=== PATIENT | male | born 1965 | race American Indian/Alaskan Native ===

== ENCOUNTER 2017-11-28 10:09 | Emergency (ER) | payer OTHER ==
--- NOTE | 2017-11-28 10:47 | EDM.PDOC ---
ED HPI GENERAL MEDICAL PROBLEM - General Chief Complaint: Lower Extremity Injury/Pain Stated Complaint: LEFT KNEE, [id number] Time Seen by Provider: 11/28/17 10:40 Source of Information: Reports: Patient, RN, RN Notes Reviewed History Limitations: Reports: No Limitations - History of Present Illness INITIAL COMMENTS - FREE TEXT/NARRATIVE: Pt c/o left knee pain and swelling sustained yesterday when pt accidentally and unexpectedly stepping in a hole. Pt states that his knee buckled, but he did not fall. He felt a "crunching" sensation with the impact. He has been able to bear wt, but states that it is almost intolerable. Reports Hx of OA and prior Rt knee arthroscopy. Onset: Sudden Duration: Constant Location: Reports: Lower Extremity, Left Quality: Reports: Ache Severity: Severe Improves with: Reports: Immobilization Worsens with: Reports: Movement Associated Symptoms: Reports: No Other Symptoms Left Knee Pain Score (Numeric/FACES): 2 - Related Data Allergies Allergy/AdvReac Type Severity Reaction Status Date / Time No Known Allergies Allergy Verified 11/28/17 10:23 Home Meds: Home Meds Lisinopril [Prinivil] 40 mg PO DAILY 05/02/16 [History] amLODIPine Besylate [Amlodipine Besylate] 5 mg PO DAILY 05/02/16 [History] Aspirin 1 tab PO DAILY 11/28/17 [History] Gabapentin [Neurontin] 1 tab PO BID 11/28/17 [History] Past Medical History Cardiovascular History: Reports: Hypertension Musculoskeletal History: Reports: Osteoarthritis - Past Surgical History Other Musculoskeletal Surgeries/Procedures:: left wrist surgery Social & Family History - Family History Family Medical History: Noncontributory - Tobacco Use Smoking Status *Q: Current Every Day Smoker Tobacco Use Within Last Twelve Months: Cigarettes Years of Tobacco use: 38 Packs/Tins Daily: 0.5 Second Hand Smoke Exposure: Yes - Alcohol Use Days Per Week of Alcohol Use: 2 Number of Drinks Per Day: 6 Total Drinks Per Week: 12 - Recreational Drug Use Recreational Drug Use: No - Living Situation & Occupation Living situation: Reports: , with Family Occupation: Employed Review of Systems - Review of Systems Review Of Systems: ROS reveals no pertinent complaints other than HPI. ED EXAM, GENERAL - Physical Exam Exam: See Below Exam Limited By: No Limitations General Appearance: Alert, WD/WN, No Apparent Distress Head: Atraumatic, Normocephalic Neck: Normal Inspection Respiratory/Chest: No Respiratory Distress Back Exam: Normal Inspection Extremities: Joint Swelling (left knee w/effusion), Limited Range of Motion ( left knee). No: Veronica's Sign, Increased Warmth, Redness Neurological: Alert, Oriented, Normal Cognition, No Motor/Sensory Deficits Psychiatric: Normal Mood Skin Exam: Warm, Dry, Intact, Normal Color, No Rash Course - Vital Signs Last Recorded V/S: Last Vital Signs Temp 37.2 C 11/28/17 10:53 Pulse 67 11/28/17 10:53 Resp 18 11/28/17 10:53 BP 154/92 H 11/28/17 10:53 Pulse Ox 98 11/28/17 10:53 - Orders/Labs/Meds Orders: Active Orders 24 hr Category Date Time Status Immobilizer [RC] ASDIRECTED Care 11/28/17 11:10 Active DME for Discharge [COMM] Routine Oth 11/28/17 11:36 Ordered Meds: Medications Discontinued Medications Generic Name Dose Route Start Last Admin Trade Name Serafin PRN Reason Stop Dose Admin Ketorolac Tromethamine 30 mg 11/28/17 11:11 11/28/17 11:27 Toradol IM 11/28/17 11:12 30 mg ONETIME ONE Administration - Radiology Interpretation Free Text/Narrative:: Xray left knee: no fracture, large effusion, OA changes, see Rad. report. Departure - Departure Time of Disposition: 11:22 Disposition: Home, Self-Care 01 Condition: Good Clinical Impression: Effusion of knee joint, left Internal derangement of knee Qualifiers: Laterality: left Qualified Code(s): M23.92 - Unspecified internal derangement of left knee Osteoarthritis of left knee Qualifiers: Osteoarthritis type: unspecified Qualified Code(s): M17.12 - Unilateral primary osteoarthritis, left knee - Discharge Information Instructions: Knee Effusion, Smoa-gm-[id number], Meniscus Tear Forms: ED Department Discharge Additional Instructions: Rx: Naprosyn 500mg *Take with meals. Rest, ice packs, and elevate left knee to reduce pain and swelling. Use crutches and knee immobilizer until evaluated by orthopedic surgeon. Attempt to quit smoking. Tobacco use increases joint inflammation and pain, and may slow the healing. Also, you may be required to be smoke free for 6 weeks before surgery (if surgery is required). Follow up in clinic for recheck and referral to orthopedic surgeon. - My Orders Last 24 Hours: My Active Orders 11/28/17 11:10 Immobilizer [RC] ASDIRECTED 11/28/17 11:36 DME for Discharge [COMM] Routine - Assessment/Plan Last 24 Hours: My Active Orders 11/28/17 11:10 Immobilizer [RC] ASDIRECTED 11/28/17 11:36 DME for Discharge [COMM] Routine
[2017-11-28 10:57] VITALS: BP 154/92
[2017-11-28] MEDS ORDERED: Ketorolac 30 MG/ML SDV IM ONE (11:11)
--- NOTE | 2017-11-28 11:19 | CR ---
CLINICAL HISTORY: 52-year-old male with left knee pain. INTERPRETATION: Abnormal. Suprapatellar bursal effusion suggesting internal derangement. Reactive sclerosis and early marginal spur formation patellofemoral surface of the left patella. Asymmetric narrowing of the medial joint compartment with associated bony eburnation ipsilateral tibi al plateau and prominent bone spurs intercondylar tibial spines but no sign of pathologic skeletal le lyssa, left knee fracture, dislocation or loose joint body. No foreign bodies. CONCLUSION: Chronic arthritis. Large knee joint effusion. No fractures.
== END 2017-11-28 11:50 | disposition home or self-care (01) ==
LOC: DL.ED 10:09
DX: M17.12 Unilateral primary osteoarthritis, left knee (principal); M23.92 Unspecified internal derangement of left knee; F17.210 Nicotine dependence, cigarettes, uncomplicated; I10 Essential (primary) hypertension; Z79.82 Long term (current) use of aspirin; Z79.899 Other long term (current) drug therapy
CPT/HCPCS: 73562; 96372; 99283; J1885

== ENCOUNTER 2018-02-18 13:13 | Emergency (ER) | payer OTHER ==
[2018-02-18 13:20] VITALS: BP 142/88
[2018-02-18] MEDS ORDERED: Ketorolac 30 MG/ML SDV IM ONE (13:48)
--- NOTE | 2018-02-18 14:03 | EDM.PDOC ---
ED HPI GENERAL MEDICAL PROBLEM - General Chief Complaint: Back Pain or Injury Stated Complaint: LOW BACK PAIN Time Seen by Provider: 02/18/18 13:40 Source of Information: Reports: Patient History Limitations: Reports: No Limitations - History of Present Illness INITIAL COMMENTS - FREE TEXT/NARRATIVE: This 53 yo male patient reports to the ED due to a 10 day history of lower back pain. The patient reports he was seen at the [facility] last week and started on a muscle relaxer. The patient reports his pain had continued and may have gotten a little worse. The patient reports that he has been taking the muscle relaxer, but nothing else for the pain. The patient reports he did have an x-ray done at the clinic. 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: Other Medication(s) (Flexeril) - Related Data Allergies Allergy/AdvReac Type Severity Reaction Status Date / Time No Known Allergies Allergy Verified 11/28/17 10:23 Home Meds: Home Meds Lisinopril [Prinivil] 40 mg PO DAILY 05/02/16 [History] amLODIPine Besylate [Amlodipine Besylate] 5 mg PO DAILY 05/02/16 [History] Aspirin 1 tab PO DAILY 11/28/17 [History] Gabapentin [Neurontin] 1 tab PO BID 11/28/17 [History] Past Medical History HEENT History: Reports: Impaired Vision Cardiovascular History: Reports: Hypertension Musculoskeletal History: Reports: Osteoarthritis - Infectious Disease History Infectious Disease History: Reports: Hepatitis C - Past Surgical History Other Musculoskeletal Surgeries/Procedures:: left wrist surgery Social & Family History - Family History Family Medical History: Noncontributory - Tobacco Use Smoking Status *Q: Current Every Day Smoker Years of Tobacco use: 40 Packs/Tins Daily: 0.5 - Caffeine Use Caffeine Use: Reports: Coffee - Living Situation & Occupation Living situation: Reports: , with Family Occupation: Employed ED ROS GENERAL - Review of Systems Review Of Systems: ROS reveals no pertinent complaints other than HPI. ED EXAM,LOWER BACK PAIN/INJURY - Physical Exam Exam: See Below Exam Limited By: No Limitations General Appearance: Alert, WD/WN, No Apparent Distress Eye Exam: Bilateral Eye: EOMI, Normal Inspection, PERRL Ears: Normal External Exam, Normal Canal, Hearing Grossly Normal, Normal TMs Nose: Normal Inspection, Normal Mucosa, No Blood Throat/Mouth: Normal Inspection, Normal Lips, Normal Teeth, Normal Gums, Normal Oropharynx, Normal Voice, No Airway Compromise Head: Atraumatic, Normocephalic Neck: Normal Inspection, Supple, Non-Tender, Full Range of Motion Respiratory/Chest: No Respiratory Distress, Lungs Clear, Normal Breath Sounds, No Accessory Muscle Use, Chest Non-Tender Cardiovascular: Normal Peripheral Pulses, Regular Rate, Rhythm, No Edema, No Gallop, No JVD, No Murmur, No Rub GI/Abdominal: Normal Bowel Sounds, Soft, Non-Tender, No Organomegaly, No Distention, No Abnormal Bruit, No Mass (Male) Exam: Deferred Rectal (Males) Exam: Deferred Back Exam: Decreased Range of Motion, Paraspinal Tenderness, Other (sciatica) Extremities: Normal Inspection, Normal Range of Motion, Non-Tender, No Pedal Edema, Normal Capillary Refill Neurological: Alert, Normal Mood/Affect, Normal Dorsiflexion, CN II-XII Intact, Normal Plantar Flexion, Normal Gait, Normal Reflexes, No Motor/Sensory Deficits , Oriented x 3 Psychiatric: Normal Affect, Normal Mood Skin Exam: Warm, Dry, Intact, Normal Color, No Rash Lymphatic: No Adenopathy Course - Vital Signs Last Recorded V/S: Last Vital Signs Temp 36.8 C 02/18/18 13:19 Pulse 73 02/18/18 13:19 Resp 19 02/18/18 13:19 BP 142/88 H 02/18/18 13:19 Pulse Ox 100 02/18/18 13:19 - Orders/Labs/Meds Meds: Medications Discontinued Medications Generic Name Dose Route Start Last Admin Trade Name Freq PRN Reason Stop Dose Admin Ketorolac Tromethamine 60 mg 02/18/18 13:48 Toradol IM 02/18/18 13:49 ONETIME ONE Departure - Departure Time of Disposition: 14:16 Disposition: Home, Self-Care 01 Condition: Fair Clinical Impression: Low back pain with sciatica Qualifiers: Chronicity: chronic Back pain laterality: bilateral Sciatica laterality: bilateral sciatica Qualified Code(s): M54.42 - Lumbago with sciatica, left side ; M54.41 - Lumbago with sciatica, right side; G89.29 - Other chronic pain - Discharge Information Instructions: Back Pain, Adult, [id number] Care Plan Goals: The patient was advised of the examination results during the visit. The patient was given an injection of Toradol (60 mg) while in the ED. The patient was discharged with a script for Toradol (10 mg) #20 to take 1 by mouth every 6 hours. The patient should follow-up with his primary care facility for continued evaluation (MRI) and further management. If the patient has any additional symptoms or concerns, the patient should visit his primary care facility or return to the ED.
== END 2018-02-18 14:29 | disposition home or self-care (01) ==
LOC: DL.ED 13:13
DX: G89.29 Other chronic pain (principal); M54.41 Lumbago with sciatica, right side; M54.42 Lumbago with sciatica, left side; I10 Essential (primary) hypertension; F17.210 Nicotine dependence, cigarettes, uncomplicated; Z79.82 Long term (current) use of aspirin; Z79.899 Other long term (current) drug therapy
CPT/HCPCS: 96372; 99283; J1885

== ENCOUNTER → 2018-10-17 | Day surgery (SDC) | payer OTHER ==
[~2018-10-17] MED LIST: Dextrose 5%-0.45% NaCl 1,000 ML IV SCH; Midazolam 1 MG/ML 2 ML SDV IV ONE; Midazolam 1 MG/ML 2 ML SDV ONE; Sodium Chloride 0.9% 10 ML Syringe FLUSH PRN; fentaNYL 100 MCG/2 ML SDV IV ONE; fentaNYL 100 MCG/2 ML SDV ONE
--- NOTE | 2018-10-17 12:03 | OR ---
DATE: 10/17/2018 PROCEDURES: Esophagogastroduodenoscopy and multiple pinch biopsies. INSTRUMENT USED: [id number] Olympus video panendoscope. PREMEDICATIONS: No oral topical anesthesia used. Fentanyl 100 mcg intravenous, Versed 2 mg intravenous. The procedure was done under pulse oximetry, BP recording, and dental manager. INDICATION: The patient with chronic hepatitis C and Hemoccult positive stools with negative colonoscopic examination for any bleeding areas. Esophagogastroduodenoscopy is performed for detection of any active erosive lesions, review for any evidence of esophageal varices. H. pylori status to be determined. Endoscopic hemostasis therapy if needed. DESCRIPTION OF PROCEDURE: The scope was passed with ease. Adequate visualization of the esophagus was made from proximal to distal areas. No upper esophageal lesions identified. No distal esophageal stricture. No uphill or downhill esophageal varices. No [place] tear. No evidence of erosive esophagitis by [place] criteria. No esophageal polyp or tumor mass identified. Small sliding hiatal hernia was noted. No proximal gastric varices noted. Gastric fundus examination by retroflexion showed no malignant lesions. No gastric ulcer, malignant mass, or vascular ectasia identified. Gastric antral erosion was noted without bleeding from it. Duodenal bulb showed no ulcer. Visualized second part of the duodenum was unremarkable. Multiple pinch biopsies were taken from the gastric antrum and proximal body and sent for PyloriTek test for H. pylori, and if negative in an hour, the tissue is to be sent for histopathology. No bleeding was noted from any of the visualized areas at the completion of examination. Photographs were taken of the duodenal bulb, gastric antrum, fundus, and distal esophagus. IMPRESSION: 1. Small sliding hiatal hernia. 2. Gastric antral erosion. The patient tolerated the procedure well. [facility] /[id number]
--- NOTE | 2018-10-17 12:39 | LETTER ---
10/17/2018 Lyric Narvaez PA-C [facility] [address] [place] [address] RE: JUVENAL LYNNE : 1965 Dear Ms. Narvaez: Mr. Juvenal Lynne had esophagogastroduodenoscopy done this morning and he tolerated the procedure well. I herewith send a copy of the endoscopy note and photographs for your review. He has been recommended to keep away from aspirin-related medications and is put on omeprazole 20 mg p.o. daily at a.m. Thank you. Sincerely, MODL /[id number]
[2018-10-17 13:34] VITALS: BP 121/80
== END | disposition home or self-care (01) ==
LOC: DL.ENDO 06:41
PROVIDERS: ATTEND Internal Medicine Gastroenterology
DX: K25.9 Gastric ulcer, unspecified as acute or chronic, without hemorrhage or perforation (principal); B96.81 Helicobacter pylori [H. pylori] as the cause of diseases classified elsewhere; K44.9 Diaphragmatic hernia without obstruction or gangrene; B18.2 Chronic viral hepatitis C
CPT/HCPCS: J2250; J3010; J7042

== ENCOUNTER 2019-12-13 11:54 | Emergency (ER) | payer BC, OTHER ==
[2019-12-13 12:07] VITALS: BP 140/85; PULSE 73
[2019-12-13] MEDS ORDERED: Orphenadrine 60 MG/2 ML Inj IM ONE (12:17)
[2019-12-13] MEDS ORDERED: Ketorolac 30 MG/ML SDV IM ONE (12:17)
--- NOTE | 2019-12-13 12:20 | EDM.PDOC ---
ED HPI GENERAL MEDICAL PROBLEM - General Chief Complaint: Back Pain or Injury Stated Complaint: back pain Time Seen by Provider: 12/13/19 12:05 Source of Information: Reports: Patient History Limitations: Reports: No Limitations - History of Present Illness INITIAL COMMENTS - FREE TEXT/NARRATIVE: This 54 yo male patient reports to the ED with right sided lower back pain. The patient reports he was lifting a couch last night at about 1730 when he felt a "pop" in his lower back. The patient reports he took some Equate medication this morning, but continues to be stiff and sore. The patient reports he is able to move, but increased pain with bending. 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: Other Medication(s) (Equate medication (the patient did not know what the name of the medication was)) Back Pain Score (Numeric/FACES): 8 - Related Data Allergies Allergy/AdvReac Type Severity Reaction Status Date / Time No Known Allergies Allergy Verified 12/13/19 12:06 Home Meds: Home Meds amLODIPine Besylate [Amlodipine Besylate] 10 mg PO QAM 05/02/16 [History] Losartan [Cozaar] 100 mg PO DAILY 08/16/18 [History] Metoprolol Succinate [Toprol Xl] 75 mg PO BEDTIME 08/16/18 [History] Multivit-Min/Iron Fum/Folic AC [Jggea-Dkpoojr-Awdggwim Tablet] 1 tab PO DAILY [History] Past Medical History HEENT History: Reports: Impaired Vision, Macular Degeneration Other HEENT History: LEFT EYE MAC DEGENRATION. WEARS GLASSES Cardiovascular History: Reports: Hypertension Respiratory History: Reports: None Gastrointestinal History: Reports: Hepatitis, Other (See Below) Other Gastrointestinal History: Hepatitis C Genitourinary History: Reports: None Musculoskeletal History: Reports: Fracture, Osteoarthritis Neurological History: Reports: None Psychiatric History: Reports: Depression Other Psychiatric History: HX OF ALCOHOLISM Endocrine/Metabolic History: Reports: None Hematologic History: Reports: None Immunologic History: Reports: None Oncologic (Cancer) History: Reports: None Dermatologic History: Reports: None - Infectious Disease History Infectious Disease History: Reports: Chicken Pox, Hepatitis C Other Infectious Disease History: HEP C BERRY TYPE 1A OR 1B - Past Surgical History HEENT Surgical History: Reports: Oral Surgery Cardiovascular Surgical History: Reports: Aneurysm Other Cardiovascular Surgeries/Procedures: Aortic aneurysm GI Surgical History: Reports: Colonoscopy Male Surgical History: Reports: None Musculoskeletal Surgical History: Reports: Other (See Below) Other Musculoskeletal Surgeries/Procedures:: Left knee surg december of 2017 meniscus repair. Left wrist surgery Social & Family History - Family History Family Medical History: Noncontributory - Caffeine Use Caffeine Use: Reports: Coffee Other Caffeine Use: 1 CUP COFFEE - Living Situation & Occupation Living situation: Reports: , with Family Occupation: Employed ED ROS GENERAL - Review of Systems Review Of Systems: Comprehensive ROS is negative, except as noted in HPI. ED EXAM,LOWER BACK PAIN/INJURY - Physical Exam Exam: See Below Exam Limited By: No Limitations General Appearance: Alert, WD/WN, Mild Distress Eye Exam: Bilateral Eye: EOMI, Normal Inspection, PERRL Ears: Normal External Exam, Normal Canal, Hearing Grossly Normal, Normal TMs Nose: Normal Inspection, Normal Mucosa, No Blood Throat/Mouth: Normal Lips, Normal Teeth, Normal Gums, Normal Voice, No Airway Compromise, Other (diffuse erythema (smoking history)) Head: Atraumatic, Normocephalic Neck: Normal Inspection, Supple, Non-Tender, Full Range of Motion Respiratory/Chest: No Respiratory Distress, Lungs Clear, Normal Breath Sounds, No Accessory Muscle Use, Chest Non-Tender Cardiovascular: Normal Peripheral Pulses, Regular Rate, Rhythm, No Edema, No Gallop, No JVD, No Murmur, No Rub GI/Abdominal: Normal Bowel Sounds, Soft, Non-Tender, No Organomegaly, No Distention, No Abnormal Bruit, No Mass (Male) Exam: Deferred Rectal (Males) Exam: Deferred Back Exam: Decreased Range of Motion, Paraspinal Tenderness (right sided lower back pain) Extremities: Normal Inspection, Normal Range of Motion, Non-Tender, No Pedal Edema, Normal Capillary Refill Neurological: Alert, Normal Mood/Affect, Normal Dorsiflexion, CN II-XII Intact, Normal Plantar Flexion, Normal Gait, Normal Reflexes, No Motor/Sensory Deficits , Oriented x 3 Psychiatric: Normal Affect, Normal Mood Skin Exam: Warm, Dry, Intact, Normal Color, No Rash Lymphatic: No Adenopathy Course - Vital Signs Last Recorded V/S: Last Vital Signs Temp 36.5 C 12/13/19 12:03 Pulse 73 12/13/19 12:03 Resp 14 12/13/19 12:03 BP 140/85 12/13/19 12:03 Pulse Ox 99 12/13/19 12:03 Departure - Departure Time of Disposition: 12:20 Disposition: Home, Self-Care 01 Condition: Fair Clinical Impression: Low back strain Qualifiers: Encounter type: initial encounter Qualified Code(s): S39.012A - Strain of muscle, fascia and tendon of lower back, initial encounter - Discharge Information *PRESCRIPTION DRUG MONITORING PROGRAM REVIEWED*: Not Applicable *COPY OF PRESCRIPTION DRUG MONITORING REPORT IN PATIENT YAIR: Not Applicable Instructions: Muscle Strain, Oebg-rq-Ytpr, Back Injury Prevention, Muph-xq-Dmgj Care Plan Goals: The patient was advised of the examination results during the visit. The patient was given an injection of Toradol (30 mg) and Norflex (60 mg) while in the ED. The patient was discharged with scripts for Toradol (10 mg) #16 to take 1 by mouth every 6 hours and Flexeril (10 mg) #10 to take 1 by mouth at bedtime as needed. If the patient has any additional symptoms or concerns, the patient should either return to the emergency department or visit his primary care facility. Sepsis Event Note - Evaluation Sepsis Screening Result: No Definite Risk - Focused Exam Vital Signs: Vital Signs Temp Pulse Resp BP Pulse Ox 12/13/19 12:03 36.5 C 73 14 140/85 99 Date Exam was Performed: 12/13/19 Time Exam was Performed: 12:13
== END 2019-12-13 12:43 | disposition home or self-care (01) ==
LOC: DL.ED 11:54
DX: S39.012A Strain of muscle, fascia and tendon of lower back, initial encounter (principal); I10 Essential (primary) hypertension; Z79.899 Other long term (current) drug therapy; X50.9XXA Other and unspecified overexertion or strenuous movements or postures, initial encounter
CPT/HCPCS: 96372; 99283; J1885; J2360

== ENCOUNTER 2021-11-01 15:43 | Emergency (ER) | payer BC, OTHER ==
[2021-11-01 15:25] VITALS: BP 126/70; PULSE 73
[~2021-11-01 15:43] MED LIST changes: -Dextrose 5%-0.45% NaCl 1,000 ML IV SCH; +MVI, Adult with Vitamin K 10 ML, Thiamine 100 MG, Folic Acid 1 MG in Lactated Ringers 1... IV ONE; -Midazolam 1 MG/ML 2 ML SDV IV ONE; -Midazolam 1 MG/ML 2 ML SDV ONE; +Ondansetron 4 MG/2 ML SDV IV ONE; -fentaNYL 100 MCG/2 ML SDV IV ONE; -fentaNYL 100 MCG/2 ML SDV ONE
[2021-11-01 15:52] LABS: ANION GAP 17.5 mEq/L (7-13); CHLORIDE,CL 105 mmol/L (98-107); SODIUM,NA 139 mmol/L (136-145)
[2021-11-01 16:04] LABS: PTT,PARTIAL THROMBOPLSTIN TIME 23.5 SEC (22.0-34.0)
== END 2021-11-01 16:15 | disposition left against medical advice (07) ==
LOC: DL.ED 15:43
DX: M25.511 Pain in right shoulder (principal); F10.129 Alcohol abuse with intoxication, unspecified; I10 Essential (primary) hypertension; M19.90 Unspecified osteoarthritis, unspecified site; Z79.899 Other long term (current) drug therapy; Z72.0 Tobacco use; Y90.8 Blood alcohol level of 240 mg/100 ml or more
CPT/HCPCS: 36415; 73030-RT; 80053; 80307; 83690; 85025; 85610; 85730; 99284